=== PATIENT | female | born 1975 | race Caucasian/White ===

== ENCOUNTER 2016-12-25 09:12 | Emergency (ER) | payer MEDICARE, OTHER ==
[2016-12-25 10:53] LABS: BASOPHIL 0.7 % (0-2); EOSINOPHIL 3.9 % (0-5); HCT 42.6 % (37.0-47.0); HGB 14.7 g/dl (12.5-16.0); LYMPHOCYTE 35.1 % (15-48); MCH 29.9 pg (25.0-31.0); MCHC 34.5 g/dL (32.0-36.0); MCV 86.6 fL (78.0-100.0); MONOCYTE 7.7 % (0-12); MPV 9.3 fL (6.0-9.5); NEUTROPHIL 52.6 % (41-80); PLT 294 K/uL (150-400); RBC 4.92 M/uL (4.20-5.40); RDW 12.6 % (11.5-14.0); WBC 6.7 K/uL (4.0-10.5)
[2016-12-25 10:58] LABS: BILIRUBIN NEGATIVE (NEGATIVE); BLOOD NEGATIVE Ery/uL (NEGATIVE); CLARITY CLEAR (CLEAR); COLOR YELLOW (YELLOW); GLUCOSE (U) NORMAL (NORMAL); KETONE (U) NEGATIVE (NEGATIVE); LEUKOCYTES NEGATIVE Leu/uL (NEGATIVE); NITRITE NEGATIVE (NEGATIVE); PROTEIN NEGATIVE (NEGATIVE); UROBILINOGEN 0.2 mg/dL (0.2-1.0)
[2016-12-25 11:02] LABS: BILIRUBIN - TOTAL 0.2 mg/dL (0.1-1.0); CREATININE 0.7 mg/dL (0.5-1.0); GLOBULIN (CALCULATION) 3.3 g/dL (2.2-4.2); TOTAL PROTEIN 7.3 g/dL (6.4-8.3)
== END 2016-12-25 11:48 | disposition home or self-care (01) ==
LOC: FER 09:12
PROVIDERS: Nurse Practitioner Family
DX: I10 Essential (primary) hypertension (principal); M54.9 Dorsalgia, unspecified; G89.29 Other chronic pain; Z79.899 Other long term (current) drug therapy
CPT/HCPCS: 36415; 80053; 81003; 85025; 99284

== ENCOUNTER → 2022-03-14 | Day surgery (SDC) | payer MEDICARE ==
[~2022-03-14] VITALS: Ht 162.6 cm; Wt 97.5 kg
[~2022-03-14] MED LIST: MELOXICAM15 MG PO; PRINIVIL10 MG PO; TAMOXIFEN CITRA20 MG PO
== END | disposition home or self-care (01) ==
LOC: FAS 09:58
DX: Z12.11 Encounter for screening for malignant neoplasm of colon (principal); K62.1 Rectal polyp; K63.89 Other specified diseases of intestine; K57.30 Diverticulosis of large intestine without perforation or abscess without bleeding; M41.9 Scoliosis, unspecified; C50.912 Malignant neoplasm of unspecified site of left female breast; I10 Essential (primary) hypertension; Z79.1 Long term (current) use of non-steroidal anti-inflammatories (NSAID); Z79.810 Long term (current) use of selective estrogen receptor modulators (SERMs); Z79.899 Other long term (current) drug therapy
CPT/HCPCS: J2704; J7120